=== PATIENT | male | born 1940 | race Two or more races ===

== ENCOUNTER 2021-04-06 09:34 | Day surgery (SDC) | payer MEDICARE, OTHER ==
[2021-04-04 15:11] VITALS: BMI 23.4
[~2021-04-06 09:34] MED LIST: LACTATED RINGERS 1,000 ML IV SCH
[2021-04-06 10:46] VITALS: RESP 16; TEMP 97.5
[2021-04-06] MEDS ORDERED: LIDOCAINE 1% (10MG/ML) FOR IV START INTRADERMA ONE (10:50)
[2021-04-06] MEDS ORDERED: PROPOFOL 10 MG/ML 20 ML VIAL IV ONE (11:11)
[2021-04-06] MEDS ORDERED: LIDOCAINE 1% INJ 10MG/ML (20 ML MDV) ONE (11:11)
--- NOTE | 2021-04-06 11:16 | P.GSHP ---
History of Present Illness H&P Date: 04/06/21 Chief Complaint: GERD This 81-year-old male who's had issues with GERD. Patient presents today for EGD. Past Medical History Past Medical History: Hyperlipidemia, Hypertension History of Any Multi-Drug Resistant Organisms: None Reported Additional Past Surgical History / Comment(s): COLONOSCOPY Past Anesthesia/Blood Transfusion Reactions: No Reported Reaction Smoking Status: Former smoker - Past Family History Mother Family Medical History: No Reported History Medications and Allergies Home Medications Medication Instructions Recorded Confirmed Type Simvastatin 40 mg PO DAILY 04/04/21 04/04/21 History lisinopriL [Zestril] 10 mg PO DAILY 04/04/21 04/04/21 History Allergies Allergy/AdvReac Type Severity Reaction Status Date / Time No Known Allergies Allergy Verified 04/04/21 15:07 Surgical - Exam Vital Signs Temp Pulse Resp BP Pulse Ox 97.5 F L 70 16 144/64 95 04/06/21 10:38 04/06/21 10:38 04/06/21 10:38 04/06/21 10:38 04/06/21 10:38 - General well developed, well nourished, no distress - Eyes PERRL - ENT normal pinna - Neck no masses - Respiratory normal expansion, normal respiratory effort - Cardiovascular Rhythm: regular - Abdomen Abdomen: soft, non tender Assessment and Plan Assessment: GERD. We'll perform EGD.
--- NOTE | 2021-04-06 11:23 | P.OP ---
Date of Procedure: 04/06/21 Preoperative Diagnosis: GERD Postoperative Diagnosis: Antral gastritis Esophagitis Hiatal hernia Procedure(s) Performed: EGD Anesthesia: MAC Surgeon: Tc No Pathology: other (Antrum, esophagus) Condition: stable Disposition: PACU Description of Procedure: The patient's placed on the endoscopy table in the lateral position. He received IV sedation. The gastro-/oropharynx passed in the esophagus into the stomach. Scope was then placed through the pylorus. The first and second portion of duodenum appeared normal. Scope was then brought back the antrum was mildly inflamed. A biopsies performed. Scope was then retroflexed and the remainder of the stomach appeared normal. The patient had a small hiatal hernia. The GE junction was at 38 cm the distal esophagus inflamed. A biopsies performed. The proximal esophagus appeared normal. Scope withdrawn for patient.
[2021-04-06 11:50] VITALS: BP 108/60; PULSE 66
== END 2021-04-06 11:56 | disposition home or self-care (01) ==
LOC: ORWHC2ENDO 09:34
PROVIDERS: ATTEND Surgery
DX: K29.50 Unspecified chronic gastritis without bleeding (principal); K21.00 Gastro-esophageal reflux disease with esophagitis, without bleeding; E78.5 Hyperlipidemia, unspecified; I10 Essential (primary) hypertension; Z87.891 Personal history of nicotine dependence; Z98.890 Other specified postprocedural states; Z79.899 Other long term (current) drug therapy
CPT/HCPCS: 88305; 43239; J2001; J2704

== ENCOUNTER → 2021-05-15 | Outpatient (CLI) | payer MEDICARE ==
--- NOTE | 2021-05-15 12:54 | US ---
EXAMINATION TYPE: US gallbladder DATE OF EXAM: 05/15/2021 COMPARISON: NONE CLINICAL HISTORY: K21.0 GERD. GERD EXAM MEASUREMENTS: Liver Length: 13.6 cm Gallbladder Wall: 0.2 cm CBD: 0.4 cm Right Kidney: 9.8 x 5.0 x 4.4 cm Technical limitations due to large amount of overlying bowel content Pancreas: Tail obscured by overlying bowel gas Liver: appears wnl as visualized Gallbladder: no evidence of stones as visualized Evidence for sonographic Barrios's sign: no CBD: Obscured by overlying bowel gas Right Kidney: no evidence of hydronephrosis IMPRESSION: No definite sonographic abnormality on this limited examination.
--- NOTE | 2021-05-15 15:34 | NM ---
EXAMINATION TYPE: NM hepatobiliary w CCK DATE OF EXAM: 05/15/2021 COMPARISON: NONE INDICATION: GERD TECHNIQUE: After the intravenous administration of 4.3 mCi Tc 99m Mebrofenin hepatobiliary scintigrap hy is performed. Images were obtained immediately post injection. FINDINGS: There is prompt uptake and excretion of radiotracer by the liver. Extrahepatic ducts are identified at 6 minutes. The gallbladder is visualized within 10 minutes. Small bowel activity is noted within 58 minutes. At one hour CCK was administered, patient was injected with 1.5 mcg of Kinevac, and gallbladder eject ion fraction is calculated at 53% %, which is in the normal range. (Normal >35% and <80%.). IMPRESSION: 1. Normal hepatobiliary scan.
== END | disposition home or self-care (01) ==
LOC: RADUSWWP 12:08
PROVIDERS: ATTEND Surgery
DX: K21.9 Gastro-esophageal reflux disease without esophagitis (principal)
CPT/HCPCS: 76705; 78227; A9537

== ENCOUNTER 2022-06-08 07:59 | Day surgery (SDC) | payer MEDICARE ==
[~2022-06-08 07:59] MED LIST changes: +LIDOCAINE 1% (10MG/ML) FOR IV START INTRADERMA PRN
[2022-06-08 08:47] VITALS: RESP 16; TEMP 97.3
[2022-06-08] MEDS ORDERED: PROPOFOL 10 MG/ML 20 ML VIAL IV ONE (09:11)
--- NOTE | 2022-06-08 09:36 | P.PCN ---
Date of Procedure: 06/08/22 Preoperative Diagnosis: Change in bowels Postoperative Diagnosis: Diverticulosis Procedure(s) Performed: Colonoscopy Anesthesia: MAC Surgeon: Lucas Loja Pathology: none sent Condition: stable Disposition: same day Indications for Procedure: 82-year-old male with recent weight loss and change in bowels. Secondary to this, plan is for lower endoscopy for further evaluation. Risks, benefits and alternatives were provided to the patient. Operative Findings: Diverticulosis Description of Procedure: The patient was brought into the endoscopy suite and placed in left lateral decubitus position and adequate sedation was achieved using conscious sedation. A digital rectal exam was performed and mild internal hemorrhoids were palpated. An endoscope was then placed in the rectum and advanced to the cecum as identified by landmarks including the appendiceal orifice and the ileocecal valve. The prep was good. The colonoscope was then slowly withdrawn, examining for any mucosal abnormalities. The cecum, ascending, transverse, descending and sigmoid colon were visualized adequately. There were no large neoplastic lesions noted throughout the colon. There were no obvious polyps noted throughout the colon. Moderate amount of diverticulosis was noted. Retroflexion was performed in the rectum and internal hemorrhoids were visible. Excess air was removed, the colonoscope withdrawn and the procedure terminated. The patient was then transferred to the recovery unit in stable condition. Repeat colonoscopy should be performed based on symptoms due to the patient's age.
[2022-06-08 10:07] VITALS: BP 119/71; PULSE 64
== END 2022-06-08 10:26 | disposition home or self-care (01) ==
LOC: ORWHC2ENDO 07:59
PROVIDERS: ATTEND Surgery
DX: K64.8 Other hemorrhoids (principal); K57.30 Diverticulosis of large intestine without perforation or abscess without bleeding; R19.4 Change in bowel habit; I10 Essential (primary) hypertension; E78.5 Hyperlipidemia, unspecified; H91.90 Unspecified hearing loss, unspecified ear; K21.9 Gastro-esophageal reflux disease without esophagitis; Z79.899 Other long term (current) drug therapy
CPT/HCPCS: 45378; J2704

== ENCOUNTER 2022-07-02 13:10 | Emergency (ER) | payer MEDICARE ==
[2022-07-02 14:34] LABS: ALT 13 U/L (4-49); AST 37 U/L (17-59); African American GFR (CKD) >90 (>60 ml/min/1.73 sqM); Alkaline Phosphatase 235 U/L (38-126); Anion Gap 8 mmol/L; Blood Urea Nitrogen 15 mg/dL (9-20); Calcium 9.3 mg/dL (8.4-10.2); Carbon Dioxide 30 mmol/L (22-30); Chloride 94 mmol/L (98-107); Glucose 102 mg/dL (74-99); Non-African American GFR(CKD) 88 (>60 ml/min/1.73 sqM); Potassium 3.9 mmol/L (3.5-5.1); Sodium 132 mmol/L (137-145); Total Bilirubin 1.2 mg/dL (0.2-1.3); Total Protein 6.8 g/dL (6.3-8.2)
[2022-07-02 14:37] LABS: Basophils % (A) 0 %; Eosinophils # (A) 0.1 k/uL (0-0.7); Eosinophils % (A) 1 %; HCT 38.4 % (39.0-53.0); HGB 12.9 gm/dL (13.0-17.5); INR 0.9 (<1.2); Lymphocytes # (A) 0.6 k/uL (1.0-4.8); Lymphocytes % (A) 7 %; MCH 31.1 pg (25.0-35.0); MCHC 33.6 g/dL (31.0-37.0); MCV 92.5 fL (80.0-100.0); Mean Platelet Volume 6.6; Monocytes # (A) 0.4 k/uL (0-1.0); Monocytes % (A) 5 %; Neutrophils # (A) 6.7 k/uL (1.3-7.7); Neutrophils % (A) 85 %; Partial Thromboplastin Time 25.1 sec (22.0-30.0); Platelet Count 367 k/uL (150-450); Prothrombin Time 10.4 sec (9.0-12.0); RBC 4.15 m/uL (4.30-5.90); RDW 13.6 % (11.5-15.5)
--- NOTE | 2022-07-02 15:21 | XR ---
EXAMINATION TYPE: XR chest 2V DATE OF EXAM: 07/02/2022 3:16 PM COMPARISON: None TECHNIQUE: XR chest 2V Frontal and lateral views of the chest. CLINICAL INDICATION:Male, 82 years old with history of difficulty breathing; FINDINGS: Lungs/Pleura: Moderate sized left pleural effusion with patchy airspace disease. Right lung is clear. No pneumothorax. Pulmonary vascularity: Unremarkable. Heart/mediastinum: Cardiomediastinal silhouette is unremarkable. Atherosclerotic calcifications are seen in the aorta. Musculoskeletal: Multiple level degenerative disc disease changes seen throughout the spine. IMPRESSION: Moderate left pleural effusion with patchy airspace disease which likely represents atelectasis versu s infectious process in the appropriate clinical setting.
[2022-07-02 16:58] VITALS: RESP 18
[2022-07-02 17:12] LABS: Appearance,Urine Clear (Clear); Bilirubin,Urine Negative (Negative); Blood,Urine Negative (Negative); Color,Urine Yellow; Glucose,Urine (UA) Negative (Negative); Ketones,Urine 1+ (Negative); Leukocyte Esterase,Urine Negative (Negative); Nitrite,Urine Negative (Negative); Protein,Urine Trace (Negative); Specific Gravity,Urine 1.021 (1.001-1.035)
--- NOTE | 2022-07-02 17:57 | CT ---
EXAMINATION TYPE: CT ChestAbdPelvis w con DATE OF EXAM: 07/02/2022 COMPARISON: None HISTORY: Abdominal pain CT DLP: 867.2 mGycm Automated exposure control for dose reduction was used. CONTRAST: Performed with IV Contrast, patient injected with 100cc mL of Isovue 300. Images obtained from the thoracic inlet to the floor of the pelvis with IV contrast. There is large left pleural effusion. There is consolidation and atelectasis left lower lobe. Pleural fluid slightly loculated. Heart size is normal. No pericardial effusion. There is no mediastinal pietro nopathy. Thoracic aorta is atheromatous. No evidence of filling defect in the pulmonary arteries. The re is occlusion of the left lower lobe bronchus. Liver spleen appear intact. There is no pancreatic mass. The bile ducts are not dilated. Gallbladder appears normal. The stomach is intact. There is 3.5 cm oval-shaped low-density left adrenal mass. Kidneys of normal size. No hydronephrosis. Ureters are not dilated. No retroperitoneal adenopathy. Bl adder distends smoothly. There is prostate calcification. No inguinal hernia. No free fluid in the pe lvis. There are multiple sigmoid diverticula. No diverticulitis. There is some mild cortical thinning lower pole left kidney. There is no mesenteric edema. No ascites or free air. No sign of a bowel obstruction. There is osteoblastic changes in T8 and T6 and T5 vertebral bodies. There is also blastic change in T 4 and T3. No compression fracture. There is osteoblastic changes in multiple posterior left-sided rib s. IMPRESSION: Left pleural effusion with dense consolidation and atelectasis left lower lobe. There is possible mas s at the left pulmonary hilum with occlusion of the left lower lobe bronchus. Tumor should be highly considered. Osteoblastic changes in the thoracic spine and left ribs are suggestive of metastatic disease. Low-de nsity nonspecific left adrenal mass. Colonic diverticulosis without diverticulitis.
--- NOTE | 2022-07-02 18:07 | ED ---
General Adult HPI - General Chief complaint: Shortness of Breath Stated complaint: poss acid reflux, SOB Time Seen by Provider: 07/02/22 15:58 Source: patient Mode of arrival: ambulatory Limitations: no limitations - History of Present Illness Initial comments: This 82-year-old male presents with a complaint of some pain primarily into his abdomen and left lower chest. He states that this is been going on for at least 3 months. He states that he has increased belching. He states that it feels like food does not digest. He apparently has lost between 40-50 pounds in the last 5 months. He denies any fevers or chills. There is been no significant cough. He states that he has been seeing his primary care. He relates that he had an MRI scan of his abdomen and aorta just about one month ago which did not show any acute abnormalities. He denies any history of cancer. He does state that he has occasional shortness of breath. He has occasional pain over his left lower ribs but denies any pain in his thoracic or lumbar spine. He states that he can only sleep on his back recently due to pain when he rolls on his side. No other complaints or modifying factors. - Related Data Home Medications Medication Instructions Recorded Confirmed Simvastatin 40 mg PO DAILY 04/04/21 07/02/22 Omeprazole/Sodium Bicarbonate 1 cap PO DAILY PRN 06/07/22 07/02/22 [Zegerid 20 mg Capsule] Acetaminophen Tab [Tylenol Tab] 500 mg PO Q6H PRN 07/02/22 07/02/22 Multivit-Min/FA/Lycopen/Lutein 1 tab PO DAILY 07/02/22 07/02/22 [Centrum Silver Men Tablet] Previous Rx's Medication Instructions Recorded Ondansetron Odt [Zofran Odt] 8 mg PO Q8HR PRN #15 tab 07/02/22 Sucralfate [Sucralfate Oral Susp] 1 gm PO ACHS 30 Days #1200 ml 07/02/22 Allergies Allergy/AdvReac Type Severity Reaction Status Date / Time No Known Allergies Allergy Verified 07/02/22 16:31 Review of Systems ROS Statement: Those systems with pertinent positive or pertinent negative responses have been documented in the HPI. ROS Other: All systems not noted in ROS Statement are negative. Past Medical History Past Medical History: GERD/Reflux, Hearing Disorder / Deafness, Hyperlipidemia, Hypertension Additional Past Medical History / Comment(s): no longer takes BP med, constipation, weight loss History of Any Multi-Drug Resistant Organisms: None Reported Additional Past Surgical History / Comment(s): COLONOSCOPIES Past Anesthesia/Blood Transfusion Reactions: No Reported Reaction Past Psychological History: No Psychological Hx Reported Smoking Status: Former smoker Past Alcohol Use History: None Reported Past Drug Use History: None Reported - Past Family History Mother Family Medical History: No Reported History General Exam - General Exam Comments Initial Comments: GENERAL: The patient is well nourished and well hydrated. VITAL SIGNS: Heart rate, blood pressure, respiratory rate reviewed as recorded in nurse's notes. EYES: Pupils are round and reactive. Extraocular movements are intact. No conjunctival / lid redness or swelling. ENT: No external evidence of injury, swelling, or ecchymosis. Airway is patent. Throat is clear. NECK: Nontender. No swelling or evidence of injury. No subcutaneous emphysema. Trachea is midline. No thyroid mass. HEART: Regular rate and rhythm. Good peripheral pulses. LUNGS/CHEST: Decreased aeration left lower lobe. No ecchymosis, subcutaneous emphysema, or tenderness. ABDOMEN: Abdomen soft without tenderness. No palpable masses or organomegaly. No peritoneal signs. No abdominal wall swelling or ecchymosis. EXTREMITIES: No extremity tenderness. Normal muscle tone and function. No thoracolumbar tenderness. NEUROLOGIC: Sensation is grossly intact. Cranial nerve exam reveals face is symmetrical, tongue is midline, speech is clear. SKIN: No abrasions or ecchymosis is noted. No induration or masses noted. PSYCHIATRIC: Alert and oriented. Appropriate behavior and judgment. Limitations: no limitations Course Vital Signs 07/02/22 07/02/22 07/02/22 13:22 16:54 18:52 Temperature 98.1 F 97.8 F Pulse Rate 67 65 71 Respiratory 16 18 18 Rate Blood Pressure 143/71 151/76 166/75 O2 Sat by Pulse 98 98 94 L Oximetry Medical Decision Making - Medical Decision Making The patient was seen and examined. All diagnostics are reviewed. He does have an EKG done which shows a normal sinus rhythm at a rate of 64. There is no acute ST-T wave changes identified. The [place] interval is 2:30, QRS duration is 88, and the QTC intervals 424. An IV is established. His laboratory is drawn and does show mild height oh the treating as well as mild hypochloremia. He has mild anemia noted as well. A computed tomography scan of the chest abdomen and pelvis is done and this does show a left hilar mass suspicious for cancer which is causing some bronchial obstruction. There is some suspicious metastatic lesions to the left ribs as well as the spine. Upon discussion with patient and , he apparently has had a 40-50 pound weight loss over the past 5 months or so. He has significant complaints of indigestion. Case is discussed with Dr. De Jesus who is agreeable to either admission or close follow-up as patient likely will need thoracentesis. This is discussed with patient in detail and he would strongly like to be discharged home and follow up closely with Dr. De Jesus. He is given the information for follow-up with his office and is instructed to call in the a.m. to make an appointment for as soon as possible. The patient is agreeable to this plan. He will currently is on a PPI type of medication. He will also be added Carafate and Zofran for occasional nausea. Return parameters are discussed. Close follow-up with primary care also recommended. - Lab Data Result diagrams: 07/02/22 14:05 07/02/22 14:05 Lab Results 07/02/22 07/02/22 07/02/22 Range/Units 14:05 14:05 14:05 WBC 8.0 (3.8-10.6) k/uL RBC 4.15 L (4.30-5.90) m/uL Hgb 12.9 L (13.0-17.5) gm/dL Hct 38.4 L (39.0-53.0) % MCV 92.5 (80.0-100.0) fL MCH 31.1 (25.0-35.0) pg MCHC 33.6 (31.0-37.0) g/dL RDW 13.6 (11.5-15.5) % Plt Count 367 (150-450) k/uL MPV 6.6 Neutrophils % 85 % Lymphocytes % 7 % Monocytes % 5 % Eosinophils % 1 % Basophils % 0 % Neutrophils # 6.7 (1.3-7.7) k/uL Lymphocytes # 0.6 L (1.0-4.8) k/uL Monocytes # 0.4 (0-1.0) k/uL Eosinophils # 0.1 (0-0.7) k/uL Basophils # 0.0 (0-0.2) k/uL PT 10.4 (9.0-12.0) sec INR 0.9 (<1.2) APTT 25.1 (22.0-30.0) sec Sodium 132 L (137-145) mmol/L Potassium 3.9 (3.5-5.1) mmol/L Chloride 94 L (98-107) mmol/L Carbon Dioxide 30 (22-30) mmol/L Anion Gap 8 mmol/L BUN 15 (9-20) mg/dL Creatinine 0.70 (0.66-1.25) mg/dL Est GFR (CKD-EPI)AfAm >90 (>60 ml/min/1.73 sqM) Est GFR (CKD-EPI)NonAf 88 (>60 ml/min/1.73 sqM) Glucose 102 H (74-99) mg/dL Plasma Lactic Acid Tru (0.7-2.0) mmol/L Calcium 9.3 (8.4-10.2) mg/dL Total Bilirubin 1.2 (0.2-1.3) mg/dL AST 37 (17-59) U/L ALT 13 (4-49) U/L Alkaline Phosphatase 235 H (38-126) U/L Troponin I (0.000-0.034) ng/mL NT-Pro-B Natriuret Pep pg/mL Total Protein 6.8 (6.3-8.2) g/dL Albumin 4.0 (3.5-5.0) g/dL Urine Color Urine Appearance (Clear) Urine pH (5.0-8.0) Ur Specific [place] (1.001-1.035) Urine Protein (Negative) Urine Glucose (UA) (Negative) Urine Ketones (Negative) Urine Blood (Negative) Urine Nitrite (Negative) Urine Bilirubin (Negative) Urine Urobilinogen (<2.0) mg/dL Ur Leukocyte Esterase (Negative) 07/02/22 07/02/22 07/02/22 Range/Units 14:05 14:05 14:05 WBC (3.8-10.6) k/uL RBC (4.30-5.90) m/uL Hgb (13.0-17.5) gm/dL Hct (39.0-53.0) % MCV (80.0-100.0) fL MCH (25.0-35.0) pg MCHC (31.0-37.0) g/dL RDW (11.5-15.5) % Plt Count (150-450) k/uL MPV Neutrophils % % Lymphocytes % % Monocytes % % Eosinophils % % Basophils % % Neutrophils # (1.3-7.7) k/uL Lymphocytes # (1.0-4.8) k/uL Monocytes # (0-1.0) k/uL Eosinophils # (0-0.7) k/uL Basophils # (0-0.2) k/uL PT (9.0-12.0) sec INR (<1.2) APTT (22.0-30.0) sec Sodium (137-145) mmol/L Potassium (3.5-5.1) mmol/L Chloride (98-107) mmol/L Carbon Dioxide (22-30) mmol/L Anion Gap mmol/L BUN (9-20) mg/dL Creatinine (0.66-1.25) mg/dL Est GFR (CKD-EPI)AfAm (>60 ml/min/1.73 sqM) Est GFR (CKD-EPI)NonAf (>60 ml/min/1.73 sqM) Glucose (74-99) mg/dL Plasma Lactic Acid Tru 1.3 (0.7-2.0) mmol/L Calcium (8.4-10.2) mg/dL Total Bilirubin (0.2-1.3) mg/dL AST (17-59) U/L ALT (4-49) U/L Alkaline Phosphatase (38-126) U/L Troponin I <0.012 (0.000-0.034) ng/mL NT-Pro-B Natriuret Pep 91 pg/mL Total Protein (6.3-8.2) g/dL Albumin (3.5-5.0) g/dL Urine Color Urine Appearance (Clear) Urine pH (5.0-8.0) Ur Specific [place] (1.001-1.035) Urine Protein (Negative) Urine Glucose (UA) (Negative) Urine Ketones (Negative) Urine Blood (Negative) Urine Nitrite (Negative) Urine Bilirubin (Negative) Urine Urobilinogen (<2.0) mg/dL Ur Leukocyte Esterase (Negative) 07/02/22 Range/Units 16:52 WBC (3.8-10.6) k/uL RBC (4.30-5.90) m/uL Hgb (13.0-17.5) gm/dL Hct (39.0-53.0) % MCV (80.0-100.0) fL MCH (25.0-35.0) pg MCHC (31.0-37.0) g/dL RDW (11.5-15.5) % Plt Count (150-450) k/uL MPV Neutrophils % % Lymphocytes % % Monocytes % % Eosinophils % % Basophils % % Neutrophils # (1.3-7.7) k/uL Lymphocytes # (1.0-4.8) k/uL Monocytes # (0-1.0) k/uL Eosinophils # (0-0.7) k/uL Basophils # (0-0.2) k/uL PT (9.0-12.0) sec INR (<1.2) APTT (22.0-30.0) sec Sodium (137-145) mmol/L Potassium (3.5-5.1) mmol/L Chloride (98-107) mmol/L Carbon Dioxide (22-30) mmol/L Anion Gap mmol/L BUN (9-20) mg/dL Creatinine (0.66-1.25) mg/dL Est GFR (CKD-EPI)AfAm (>60 ml/min/1.73 sqM) Est GFR (CKD-EPI)NonAf (>60 ml/min/1.73 sqM) Glucose (74-99) mg/dL Plasma Lactic Acid Tru (0.7-2.0) mmol/L Calcium (8.4-10.2) mg/dL Total Bilirubin (0.2-1.3) mg/dL AST (17-59) U/L ALT (4-49) U/L Alkaline Phosphatase (38-126) U/L Troponin I (0.000-0.034) ng/mL NT-Pro-B Natriuret Pep pg/mL Total Protein (6.3-8.2) g/dL Albumin (3.5-5.0) g/dL Urine Color Yellow Urine Appearance Clear (Clear) Urine pH 6.0 (5.0-8.0) Ur Specific [place] 1.021 (1.001-1.035) Urine Protein Trace H (Negative) Urine Glucose (UA) Negative (Negative) Urine Ketones 1+ H (Negative) Urine Blood Negative (Negative) Urine Nitrite Negative (Negative) Urine Bilirubin Negative (Negative) Urine Urobilinogen 2.0 (<2.0) mg/dL Ur Leukocyte Esterase Negative (Negative) Disposition Clinical Impression: Pulmonary mass, Metastasis to spinal column, Bone metastases, Indigestion, Hiatal hernia, Dyspnea, Pleural effusion Disposition: HOME SELF-CARE Condition: Fair Instructions (If sedation given, give patient instructions): Lung Cancer (DC), Pleural Effusion (DC), Indigestion (ED) Additional Instructions: Please call Dr. De Jesus's office in the AM to make an appointment for as soon as possible but preferrable this week. Please let the staff know that you were seen in the office and that Dr. De Jesus is aware of your problem and wants to see you right away. Prescriptions: Sucralfate [Sucralfate Oral Susp] 1 gm PO ACHS 30 Days #1200 ml Ondansetron Odt [Zofran Odt] 8 mg PO Q8HR PRN #15 tab PRN Reason: Nausea Is patient prescribed a controlled substance at d/c from ED?: No Referrals: Marcial Dey DO [Primary Care Provider] - 1-2 days Rosa Maria De Jesus MD [STAFF PHYSICIAN] - 1-2 days Time of Disposition: 18:32
[2022-07-02 18:54] VITALS: BP 166/75; PULSE 71; TEMP 97.8
== END 2022-07-02 18:54 | disposition home or self-care (01) ==
LOC: EC 13:10
DX: C79.51 Secondary malignant neoplasm of bone (principal); C41.2 Malignant neoplasm of vertebral column; R91.8 Other nonspecific abnormal finding of lung field; K30 Functional dyspepsia; K44.9 Diaphragmatic hernia without obstruction or gangrene; J90 Pleural effusion, not elsewhere classified; E87.8 Other disorders of electrolyte and fluid balance, not elsewhere classified; I10 Essential (primary) hypertension; K21.9 Gastro-esophageal reflux disease without esophagitis; E78.5 Hyperlipidemia, unspecified; H91.90 Unspecified hearing loss, unspecified ear; Z79.899 Other long term (current) drug therapy; Z87.891 Personal history of nicotine dependence
CPT/HCPCS: 36415; 93005; 83880; 80053; 83605; 84484; 85025; 85610; 85730; 81003; 71046; 71260; 74177; 99285; Q9967

== ENCOUNTER 2022-07-04 11:34 | Day surgery (SDC) | payer MEDICARE ==
[~2022-07-04 11:34] MED LIST changes: -LACTATED RINGERS 1,000 ML IV SCH; -LIDOCAINE 1% (10MG/ML) FOR IV START INTRADERMA PRN; +SODIUM CHLORIDE 0.9% 500 ML 500 ML in EMPTY BAG 1 BAG IV PRN
[2022-07-04 12:02] VITALS: TEMP 97.7
[2022-07-04 13:36] VITALS: BP 164/72; PULSE 75; RESP 20
[2022-07-04] MEDS ORDERED: ACETAMINOPHEN TAB 500 MG TAB PO STA (14:20)
[2022-07-04 18:29] LABS: Appearance,BF Cloudy
--- NOTE | 2022-07-04 20:16 | OP ---
OPERATIVE REPORT PREOPERATIVE DIAGNOSIS: Left-sided pleural effusion. POSTOPERATIVE DIAGNOSIS: Left-sided pleural effusion, rule out underlying mesothelioma, rule out underlying primary bronchogenic carcinoma. PROCEDURE: Thoracentesis on left side without ultrasound markings. INDICATION: Pleural effusion. A time-out was completed verifying correct patient, procedure, site, positioning , and implant (s) or special equipment if applicable. Ultrasound guidance was not used and appropriate fluid pocket was identified and marked. Patient was positioned, prepped and draped in usual sterile fashion. Lidocaine was used to anesthetize the area. A Thoracentesis catheter was introduced into the pleural space and fluid was removed. Blood loss was none. A chest x-ray was ordered to evaluate for pneumothorax. Total Fluid Removed: 500 mL. Color of Fluid: Turbid dark red, cloudy Fluid sent for appropriate laboratory tests. Patient tolerated the procedure well and there were no complications. No bedside complications. MMODL / IJN: [id number] /
[2022-07-05 03:09] LABS: Glucose, BF Source Pleural Fluid; Glucose, Body Fluid 25 mg/dL; LDH, Body Fluid Source Pleural Fluid; T. Protein, Body Fluid Source Pleural Fluid; Total Protein, Body Fluid 4200 mg/dL
--- NOTE | 2022-07-05 21:33 | XR ---
EXAMINATION TYPE: XR chest 1V portable DATE OF EXAM: 07/04/2022 COMPARISON: CT chest 07/02/2022 INDICATION: Postthoracentesis TECHNIQUE: Single frontal view of the chest is obtained. Images are presented and 07/05/2022 final inte rpretation on PACS repair. Preliminary report was provided at the time of imaging. FINDINGS: The heart size is normal. The pulmonary vasculature is normal. There is a moderate left pleural effusion. No definite pneumothorax identified. Follow up exams can b e performed as clinically indicated. There does appear to be some fluid tracking along the lateral as pect of the chest. Right lung appears clear. The right costophrenic angle is excluded from the field- of-view. IMPRESSION: 1. No definite pneumothorax postthoracentesis. 2. Moderate left pleural effusion. 3. Follow up exams can be performed as clinically indicated.
== END 2022-07-04 14:49 | disposition home or self-care (01) ==
LOC: PROCWHC3 11:34
PROVIDERS: ATTEND Internal Medicine Critical Care Medicine
DX: J90 Pleural effusion, not elsewhere classified (principal); K21.9 Gastro-esophageal reflux disease without esophagitis; E78.5 Hyperlipidemia, unspecified; I10 Essential (primary) hypertension; Z87.891 Personal history of nicotine dependence
CPT/HCPCS: 32554; 71045; 82945; 83615; 84157; 87070; 87075; 87077; 87186; 87205; 88108; 88305; 88341; 88342; 89050

== ENCOUNTER → 2022-07-20 | Outpatient (CLI) | payer MEDICARE ==
--- NOTE | 2022-07-20 13:23 | PE ---
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 Images are reviewed on the computer in the coronal, axial, and sagittal planes. Reconstructed rotating images are created on independent workstation and reviewed on the computer. A non-contrast CT is performed in conjunction with the PET scan. Glucose level 77 mg/dL COMPARISON: CT 07/02/2022, PET/CT None, FINDINGS: Mediastinal SUV mean is 1.6. Hepatic parenchyma SUV mean is 2.0 SKULL BASE AND NECK: * Left parotid gland focus of FDG activity max SUV 2.3. * Left neck diffuse FDG activity suspected to be just anterior to the left sternocleidomastoid muscl e likely representing lymph node with max SUV 7.8. CHEST, MEDIASTINUM, AND HILAR REGION: * Subcarinal lymph node with max SUV 6.7 and measuring 1.0 cm in short axis * Prevascular space lymph node max SUV 2.8 measuring 0.4 cm's. * Inferior left lower lobe/pulmonary hilum mass with Max SUV 9.1 overall difficult to measure given lack of IV contrast, measures at least 10.5 x 5.8 x 4.2 cm. This is suspected to made into pleura elidia ng the medial aspect. ABDOMEN AND PELVIS: Prominent lymph node in the gastrohepatic ligament just under the diaphragm max SUV 2.8 measuring 7 m m in short axis. OSSEOUS STRUCTURES: Suspicious FDG activity: * C2 vertebrae with Max SUV 6.4. * Right scapula within a destructive osseous lesion medially max SUV 6.7 within the spine max SUV 5. 1. * Manubrium max SUV 5.8 * Additional areas are seen within the ribs and scattered vertebrae, example L4 spinous process max SUV 7.7, T12 vertebral body max SUV 8.6, T8 vertebral body max SUV 4.3, T6 vertebral body max SUV 3.8 , T12 left transverse process sacralization max 35.3 * left-sided ribs including ribs 3 Max SUV 4.5, rib 5 Max SUV 3.3, rib 8 Max, SUV 3.5. * Left iliac bone max SUV 4.4 * Subtle uptake within the right zygomatic bone max SUV 3.3 could be artifactual. OTHER CT: Atherosclerosis of the arterial vasculature including the carotid bifurcations and coronary arteries. The heart is mildly enlarged for size. There is a large left pleural effusion with volume loss on the left with mediastinal shift leftward. Moderate emphysema changes. There is bilateral nono bstructing renal calculi. Scattered clonic diverticula present. Prostate gland measures up to 5.2 cm and is enlarged. IMPRESSION: 1. Findings compatible with primary lung malignancy with suspected left pleural metastatic disease, and metastatic disease to the mediastinum and upper abdominal lymph nodes, as well as diffuse osseous metastatic disease. 2. Indeterminate left neck radiotracer uptake with some misregistration artifact, suspected to be ju st anterior to the left sternocleidomastoid muscle probably probably representing an metastatic lymph node. 3. Left parotid gland focus of uptake could represent subtle lymph node or Warthin gland tumor.
== END | disposition home or self-care (01) ==
LOC: RADXRMAIN 07:05
PROVIDERS: ATTEND Internal Medicine Critical Care Medicine
DX: C79.51 Secondary malignant neoplasm of bone (principal)
CPT/HCPCS: 78815; A9552

== ENCOUNTER → 2022-08-20 | Outpatient (CLI) | payer OTHER ==
--- NOTE | 2022-08-20 16:02 | MR ---
EXAMINATION TYPE: MR brain wo/w con DATE OF EXAM: 08/20/2022 COMPARISON: PET/CT 07/20/2022 HISTORY: Evaluate for metastatic disease. TECHNIQUE: Multiplanar, multisequence images of the brain and brainstem is performed without and with IV contras t, utilizing 6 mL intravenous Gadavist . FINDINGS: Diffusion weighted images demonstrate no evidence of a recent infarct or other diffusion ab normality. There is no extra-axial fluid collection. Scattered T2/FLAIR hyperintense periventricular and subcortical foci. No abnormal contrast enhancement. The ventricular system and cisternal spaces are normal in size and appearance. The brain volume is age appropriate. Midline structures demonstrate normal morphology. There is diffuse low T1 signal within the visualize d C2 body with enhancement identified. The dural venous sinuses appear patent. The lobes are intact. Mucous retention cysts within the bilateral maxillary sinuses.. IMPRESSION: 1. No definitive evidence of intracranial metastasis. 2. C2 metastatic disease corresponding to PET/CT. 3. Nonspecific periventricular and subcortical white matter changes without enhancement favored to r epresent chronic small vessel ischemic disease.
== END | disposition home or self-care (01) ==
LOC: RADMRIMAIN 14:19
PROVIDERS: ATTEND Radiology Radiation Oncology
DX: C79.51 Secondary malignant neoplasm of bone (principal)
CPT/HCPCS: 70553; A9585

== ENCOUNTER → 2022-09-05 | Outpatient (CLI) | payer OTHER ==
--- NOTE | 2022-09-05 18:50 | CA ---
Transthoracic Echo Report Name: Kenroy Benavides Age: 82 Gender: M : 1940 Exam Date: 09/05/2022 14:19 Exam Location: [place] [facility] Ht (in): 69 Wt (lb): 137 Ordering Physician: Flores Castellanos MD Attending/Referring Phys: Sewer Builder Katerin Garza RDCS Procedure CPT: Indications: Z01.818 Cardiac Hx: Technical Quality: Good Contrast 1: Total Dose (mL): Contrast 2: Total Dose (mL): MEASUREMENTS (Male / Female) Normal Values 2D ECHO LV Diastolic Diameter PLAX 3.9 cm 4.2 - 5.9 / 3.9 - 5.3 cm LV Systolic Diameter PLAX 2.7 cm IVS Diastolic Thickness 1.1 cm 0.6 - 1.0 / 0.6 - 0.9 cm LVPW Diastolic Thickness 1.2 cm 0.6 - 1.0 / 0.6 - 0.9 cm LV Relative Wall Thickness 0.6 RV Internal Dim ED PLAX 2.8 cm LA Systolic Diameter LX 2.5 cm 3.0 - 4.0 / 2.7 - 3.8 cm LA Volume 32.7 cm??? 18 - 58 / 22 - 52 cm??? M-MODE Aortic Root Diameter MM 3.4 cm MV E Point Septal Separation 0.3 cm AV Cusp Separation MM 2.1 cm DOPPLER AV Peak Velocity 137.9 cm/s AV Peak Gradient 7.6 mmHg MV Area PHT 2.7 cm??? Mitral E Point Velocity 66.9 cm/s Mitral A Point Velocity 106.3 cm/s Mitral E to A Ratio 0.6 MV Deceleration Time 284.2 ms MV E' Velocity 5.6 cm/s Mitral E to MV E' Ratio 12.0 TR Peak Velocity 276.8 cm/s TR Peak Gradient 30.6 mmHg Right Ventricular Systolic Press 35.6 mmHg FINDINGS Left Ventricle Left ventricular ejection fraction is estimated at 60-65 %. Small left ventricular cavity. Borderline left ventricular hypertrophy. Right Ventricle Normal right ventricular size and function. Mild pulmonary hypertension. Right Atrium Normal right atrial size. Left Atrium Normal left atrial size. No evidence for an atrial septal defect. Mitral Valve Structurally normal mitral valve. Mitral annular calcification. No mitral stenosis, regurgitation or prolapse. Aortic Valve Trileaflet aortic valve. Focal thickening of the aortic valve cusps. Trace aortic regurgitation. Tricuspid Valve Mild tricuspid regurgitation. Pulmonic Valve Trace pulmonic regurgitation. Pericardium Normal pericardium. No pericardial effusion. Aorta Normal size aortic root and proximal ascending aorta. CONCLUSIONS Normal biventricular dimension and systolic function Aortic sclerosis without stenosis with mild insufficiency Previewed by: Dr. Alejandro Brown MD (Electronically Signed) Final Date: 05 September 2022 18:49
== END | disposition home or self-care (01) ==
LOC: RADECHMAIN 14:12
PROVIDERS: ATTEND Internal Medicine
DX: Z01.818 Encounter for other preprocedural examination (principal)
CPT/HCPCS: 93306

== ENCOUNTER → 2023-01-29 | Outpatient (CLI) | payer OTHER ==
[2023-01-29 13:48] LABS: African American GFR (CKD) >90 (>60 ml/min/1.73 sqM); Blood Urea Nitrogen 23 mg/dL (9-20); Non-African American GFR(CKD) 86 (>60 ml/min/1.73 sqM)
--- NOTE | 2023-01-29 15:57 | CT ---
EXAMINATION TYPE: CT ChestAbdPelvis w con CT DLP: 541.2 mGycm, Automated exposure control for dose reduction was used. DATE OF EXAM: 01/29/2023 3:19 PM COMPARISON: CT chest 12/07/2022, PET/CT 07/20/2022, CT chest abdomen pelvis 07/02/2022. CLINICAL INDICATION:Male, 82 years old with history of C34.32 LUNG CANCER; PHH, lung ca Technique: Multiple axial images of the chest, abdomen, and pelvis were obtained following the intrav enous administration of 100 mL Isovue-300. Two-dimensional coronal and sagittal reconstructions were obtained. Findings: CHEST: LUNGS/ PLEURA: No pneumothorax. Mild to moderate centrilobular emphysematous changes. Similar left hi lar mass measuring 5.0 x 3.9 cm. There is surrounding atelectasis. Similar loculated moderate size le ft pleural effusion. Resolution of previous demonstrated foci of gas within the effusion. Resolution of right-sided pleural effusion. Increased consolidation along the posterior aspect of the right uppe r lobe near the apex. Stable scattered peripheral pulmonary nodules with example including a right mi dlung nodule measuring 6.5 mm (series 4, image 35).. AIRWAY: Patent and unremarkable.. HEART: Size within normal limits. . MEDIASTINUM: No gross evidence of adenopathy. VASCULATURE: No aortic aneurysm. MUSCULOSKELETAL: No acute osseous abnormalities. Similar sclerotic metastasis within the visualized t horacic spine and bilateral ribs. SOFT TISSUES/LYMPH NODES: Unremarkable. LOWER NECK: No significant findings. ABDOMEN: ABDOMEN LIVER: Stable subcentimeter hypodense focus likely representing a cyst. GALLBLADDER AND BILE DUCTS: Unremarkable. PANCREAS: Unremarkable. SPLEEN: Unremarkable. ADRENAL GLANDS: Right adrenal gland is unremarkable. Stable oval-shaped low-density left adrenal mass measuring up to 2.7 cm. KIDNEYS AND URETERS: No evidence of hydronephrosis. Nodular 2 bilateral renal calculi. The kidneys en luz symmetrically. Cortical thinning of the bilateral kidneys lower poles. PELVIS BLADDER: Unremarkable REPRODUCTIVE: Coarse calcifications of the prostate gland are identified. ABDOMEN & PELVIS STOMACH AND BOWEL: Stomach and duodenum are unremarkable. Enteric contrast reaches the mid small fady l. Scattered colonic diverticulosis of the distal colon without evidence for acute diverticulitis. No evidence of bowel obstruction. PERITONEUM: No evidence of pneumoperitoneum or free fluid. VASCULATURE: Moderate atherosclerotic calcifications are present throughout the abdominal aorta and i ts branches. No abdominal aortic aneurysm. MUSCULOSKELETAL: No acute osseous abnormalities. There are new sclerotic metastasis is identified wit hin both iliac bones, the right greater trochanter, and the L4 and L5 posterior elements. LYMPH NODES: No gross evidence for lymphadenopathy. SOFT TISSUE/ABDOMINAL WALL: Unremarkable IMPRESSION: 1. Stable left hilar mass. 2. Similar size of loculated left-sided moderate pleural effusion with resolution of internal gas foc i 3. Stable right lung peripheral pulmonary nodules. 4. Sclerotic metastasis demonstrated within the thoracolumbar spine, bilateral ribs, right femur, and pelvic bones. The lumbar spine, right femur, pelvic bone sclerotic metastasis are new from prior PET /CT 07/20/2022 consistent with progression of disease. 5. Stable indeterminate left adrenal gland 2.7 cm mass. This could represent metastasis. This can be further evaluated with CT abdomen adrenal mass protocol as clinically indicated. 6. Colonic diverticulosis without evidence for acute diverticulitis.
== END | disposition home or self-care (01) ==
LOC: RADCTMAIN 13:09
PROVIDERS: ATTEND Internal Medicine
DX: C34.32 Malignant neoplasm of lower lobe, left bronchus or lung (principal); K57.30 Diverticulosis of large intestine without perforation or abscess without bleeding; R91.8 Other nonspecific abnormal finding of lung field; J90 Pleural effusion, not elsewhere classified; C79.51 Secondary malignant neoplasm of bone
CPT/HCPCS: 82565; 84520; 71260; 74177; 36415; Q9967

== ENCOUNTER → 2023-04-26 | Outpatient (CLI) | payer OTHER ==
--- NOTE | 2023-04-29 15:34 | PE ---
EXAMINATION TYPE: PET CT fusion skull to thigh DATE OF EXAM: 04/26/2023 COMPARISON: 01/29/2023 Prior PET/CT: 07/20/2022 HISTORY: Lung cancer TECHNIQUE: Following the intravenous administration of 12.97 mCi of F-18 FDG, whole body images are performed from the skull base to the midthigh. Images are reviewed on the computer in the coronal, a xial, and sagittal planes. Reconstructed rotating images are created on independent workstation and reviewed on the computer. A localization and attenuation correction CT is performed in conjunction with the PET scan. DLP: 352.07 mGycm SCAN: Subsequent Blood glucose: 102 mg/dL Average Mediastinum SUV: 1.41 Average Liver SUV: 1.93 FINDINGS: NECK: There is a focal hot nodule within the left neck near the angle of the jaw with an SUV value o f 3.71 THORAX: Some subtle uptake appears to be within the posterior medial left lung apex with an SUV value of 1.38. This is intermediate. Inflammatory changes as well as early metastatic disease could be con sidered. There is increased uptake along the paraspinal region above the level of the aortic arch, image 50, w ith an SUV value 2.47 suspicious for metastasis. There is a focus of radiotracer within the left suprahilar region posteriorly. This extends inferior with an average SUV in the range of 3.62. An additional focus of radiotracer is within the subcarinal region with an SUV value of 3. These areas are suspicious for neoplasm. ABDOMEN: There is intense uptake at the gastroesophageal junction greater than typically expected wit h an SUV value of 4.05. Metastatic disease should be considered. PELVIS: Osseous uptake is noted discussed below. There may be some uptake within the perirectal regio n with an SUV value 1.96. This is intermediate inflammatory change as well as neoplasm should be cons idered. Image 204 OSSEOUS STRUCTURES: There is a focus of radiotracer accumulation along the medial right scapula, imag e 41, SUV 1.91. There are couple of foci of increased radiotracer accumulation within lateral left ri bs example image 54 left rib with an SUV value 1.80. There is marked increased uptake within lateral left lower ribs. These have SUV values in the range of 2.72 and are suspicious for metastatic changes .. Intense uptake is in the L4 region. T12 and T8 region uptake is also noted suspicious for metastat ic disease. Left sacral uptake with an SUV of 4.28 is present suspicious for metastatic disease. Omer tional uptake is at the iliac wings above the acetabulum bilaterally. LOCALIZATION CT: Small left pleural effusion is present. COMPARISON: Osseous metastatic disease has increased over the interval. Uptake at the gastroesophagea l junction appears to be new. Soft tissue uptake within the thorax likewise appears to be new. Uptake within the left neck appears diminished over the interval. IMPRESSION: 1. Increasing volume and number of osseous metastasis compared to the previous PET/CT. 2. Increasing intrathoracic radiotracer uptake compatible with metastasis. 3. Moderate pleural effusion.
== END | disposition home or self-care (01) ==
LOC: RADPETMAIN 14:42
PROVIDERS: ATTEND Internal Medicine Critical Care Medicine
DX: C79.51 Secondary malignant neoplasm of bone (principal); J90 Pleural effusion, not elsewhere classified
CPT/HCPCS: 78815; A9552